=== PATIENT | male | born 1980 | race Caucasian/White ===

== ENCOUNTER 2017-03-15 11:08 | Emergency (ER) | payer OTHER ==
[~2017-03-15] VITALS: Ht 175.3 cm; Wt 85.0 kg
[2017-03-15 11:18] VITALS: TEMP 37; Ht 175.3 cm; Wt 85.0 kg
[2017-03-15] MEDS ORDERED: XYLOCAINE 1%/SOD BICARB 20 ML VIAL INFIL ONE (11:21)
--- NOTE | 2017-03-15 12:06 | DIAGNOSTIC IMAGING REPORT ---
L TIBIA/FIBULA 2 VIEWS ROUTINE HISTORY: 36 years-old Male fall, puncture wound, possible foreign body acute penetrating trauma of the left lower extremity status post fall COMPARISON: None available. TECHNIQUE: Frontal and lateral views of the left tibia and fibula. FINDINGS: There is focal mild to moderate soft tissue swelling in the proximal pretibial tissues, likely posttraumatic without opaque foreign body or acute underlying bony abnormality. There is no acute fracture, dislocation or significant degenerative changes. IMPRESSION: Focal mild to moderate soft tissue swelling in the proximal pretibial tissues, likely posttraumatic without opaque foreign body or acute bony abnormality. The above report was generated using voice recognition software. It may contain grammatical, syntax or spelling errors. Electronically signed by: Virgil May M.D. 03/15/2017 12:05 PM Dictated Date/Time: 03/15/2017 12:03 PM
[2017-03-15] MEDS ORDERED: CEPH500C2 PO (12:35)
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
[2017-03-15] MEDS ORDERED: CEPHALEXIN MONOHYDRATE 250 MG CAP PO ONE (12:45)
[2017-03-15 12:52] VITALS: BP 128/75; PULSE 95; O2SAT 98
== END 2017-03-15 12:54 | disposition home or self-care (01) ==
LOC: C.EDB 11:09 → C.EDD 12:54
DX: S81.832A Puncture wound without foreign body, left lower leg, initial encounter (principal); V19.9XXA Pedal cyclist (driver) (passenger) injured in unspecified traffic accident, initial encounter